=== PATIENT | female | born 1940 | race Caucasian/White ===

== ENCOUNTER 2021-08-21 01:05 | Outpatient (CLI) | payer MEDICARE, OTHER, SELFPAY ==
[2021-08-21 13:16] LABS: Source Nasal/Nares
[2021-08-21 17:39] LABS: COVID-19 PCR Negative (Negative)
== END 2021-08-21 01:06 | disposition home or self-care (01) ==
LOC: LBO 01:06
PROVIDERS: PCP Student in an Organized Health Care Education/Training Program; Visit Provider Ophthalmology
DX: Z20.822 Contact with and (suspected) exposure to COVID-19 (principal)
CPT/HCPCS: 87635; U0005

== ENCOUNTER 2021-08-24 09:36 | Day surgery (SDC) | payer MEDICARE, OTHER, SELFPAY ==
--- NOTE | 2021-08-24 10:21 | W.ANESPRE ---
General Info Date of Service Date Performed: 08/24/21 Height: 5 ft 1 in Weight: 58.06 kg Body Mass Index (BMI): 24.1 Surgical Procedure: Operation Date: 08/24/21 12:40 Proposed Procedure Side Surgeon p Cataract Extraction with IOL Implant Left Sky Guillen MD Meds Allergies and Home Medications Allergies Allergy/AdvReac Type Severity Reaction Status Date / Time shellfish derived Allergy Unknown Verified 08/24/21 10:20 cats Allergy Other (See Uncoded 08/24/21 10:20 Comment) Home Medication Medication Instructions Recorded cholecalciferol (vitamin D3) 25 1,000 unit PO DAILY 06/01/17 mcg (1,000 unit) capsule (Vitamin D3) albuterol sulfate 90 mcg/actuation 1 - 2 puff INHALATION Q6H PRN #4 01/30/21 aerosol inhaler (ProAir HFA) inhaler salmeterol 50 mcg/dose blister 1 inh INHALATION Q12H PRN #3 unit 01/30/21 powder for inhalation (Serevent Diskus) ascorbic acid (vitamin C) 500 mg 1,000 mg PO .QD cap 08/13/21 capsule ipratropium 0.5 mg-albuterol 3 mg 3 ml INHALATION DAILY PRN #90 vial 08/13/21 (2.5 mg base)/3 mL nebulization soln Current Visit Medications: Current Medications Generic Name Dose Route Start Last Admin Trade Name Freq PRN Reason Stop Dose Admin Acetaminophen 1,000 mg 08/24/21 06:00 Acetaminophen 500 Mg Tab PO Q4H PRN PRN Miscellaneous Medication 0 ml 08/24/21 06:00 Prednisolone 1%, Moxifloxacin 0.5%, Nepafenac 0.1% 5ml Btl OS DIRECTED [facility] Miscellaneous Medication 0 ml 08/24/21 06:00 Tropicam./Phenyleph. (1/2.5%) 5 Ml Btl OS DIRECTED ROMÁN Tetracaine HCl 0 ml 08/24/21 06:00 Tetracaine 0.5% 4 Ml Btl OS DIRECTED ROM[facility]N PFSH Active Problems Active Problems: Problem Status Onset Code Cataracts, bilateral H26.9 Asthma J45.909 Chronic obstructive lung disease 06/16/12 J44.9 Hearing deficit 01/21/14 H91.90 Intrinsic asthma, unspecified 10/13/11 J45.909 Surgical History Surgical History Abdominal hysterectomy Appendectomy Biopsy of breast Right Breast Cholecystectomy Fracture, Open Treatment Left ankle pin after fx Tonsillectomy and adenoidectomy Tobacco Smoking/Tobacco Use Status: Never Alcohol Alcohol Intake: never Substance Use Substance use: Never Substance use type: does not use Vital Signs and Lab Results Lab Results Blood Type / Crossmatch: No Data to Display Complete Blood Count: No Data to Display Complete Metabolic Panel: No Data to Display Liver Function Panel: No Data to Display Coagulation Panel: No Data to Display Cardiac Panel: No Data to Display Arterial Blood Gas: No Data to Display Venous Blood Gas: No Data to Display Pancreas Panel: No Data to Display Thyroid Panel: No Data to Display Infectious Disease: Coronavirus (COVID-19)(PCR) Negative (Negative) 08/21/21 08:37 08/21/21 Coronavirus 2019 Source Nasal/Nares 08/21/21 08:37 08/21/21 Blood Cultures: No Data to Display Toxicology Panel: No Data to Display Anesthesia Assessment and Plan Anesthesia History Personal History: No History of Anesthesia Complications Family History: No Family History of Anesthesia Complications Exercise Tolerance Exercise Tolerance: Metabolic Equivalents>4 Pertinent Negatives Pertinent Negatives: No Symptoms of GERD Cardiac & Pulmonary Exam Cardiac Exam: Normal S1/S2 Heart Sounds Pulmonary Exam: Clear Bilateral Breath Sounds Implantable Cardiac Device Does patient have a Pacemaker or an ICD?: No Airway Exam Known Difficult Airway: No Mallampati Class: 2 Mouth Opening: Normal (> 3cm) Thyromental Distance: Greater than 3 cm Neck Range of Motion: Full ROM Neck Circumference: Normal Teeth Condition: Removable Dentures/Plates Upper ASA Classification ASA Score: ASA 2 Emergency Case?: No NPO Status NPO Status: NPO Clears >2 hours, Solids >8 hours Anesthesia Plan Resuscitation Status: Full Code Anesthesia Technique: MAC Anesthesia Airway Planned: Natural Airway Monitors Used: Standard Monitors
[2021-08-24 10:22] VITALS: BP 148/76; PULSE 79; RESP 16; TEMP 36.7; O2SAT 99
[2021-08-24] MEDS: Tropicam./Phenyleph. (1/2.5%) 5 ML BTL OS ×3 (10:32→10:43)
[2021-08-24 11:00] VITALS: BMI 24.1
[2021-08-24] MEDS: Tetracaine 0.5% 4 ML BTL OS (11:15)
[2021-08-24] MEDS: Povidone-Iodine Ophth 30 ML BTL (11:16)
[2021-08-24] MEDS: Lidocaine 2% Jelly 6 ML SYR (11:18)
[2021-08-24] MEDS: Balanced Salt Soln.-PLUS 500 ML BAG (11:22)
[2021-08-24] MEDS: Duovisc Viscoelastic System EACH 1 EACH (11:22)
[2021-08-24 11:43] VITALS: BP 145/66; PULSE 77; RESP 16; TEMP 36.8; O2SAT 99
--- NOTE | 2021-08-24 11:43 | W.PM.DSUDISC ---
Discharge Plan Disposition Patient Disposition: HOME Condition: Good Discharge Details Attending Provider: Sky Guillen Primary Care Provider: Charity Castillo Home Meds and New Rx's Prescriptions: No Action ipratropium-albuterol 0.5 mg-3 mg(2.5 mg base)/3 mL solution for nebulization 3 ml Inhalation DAILY PRN (Reason: shortness of breath or wheezing) Qty: 90 3RF Rx Instructions: for wheezing/SOB: Dispense 3 boxes of 30 unit dose vials please ascorbic acid (vitamin C) 500 mg capsule 1,000 mg PO .QD 0RF cholecalciferol (vitamin D3) [Vitamin D3] 1,000 UNIT capsule 1,000 unit PO DAILY 0RF albuterol sulfate [ProAir HFA] 90 mcg/actuation HFA aerosol inhaler 1 - 2 puff Inhalation Q6H PRN Qty: 4 3RF Serevent Diskus 50 mcg/dose blister with device 1 inh Inhalation Q12H PRN Qty: 3 3RF Rx Instructions: for COPD Discharge Instructions Stand Alone Forms: Post-op Topical Cataract, No Rodriguez (DSU) Discharge Orders Discharge Orders: Discharge Order (Routine); Ordered 08/24/21 Ordered By: Sky Guillen DS: Diagnosis Discharge Diagnosis (1) Nuclear sclerotic cataract of left eye: Status: Resolved
--- NOTE | 2021-08-24 11:44 | ROE_ITS ---
Date of service: 08/24/21 Time of Service: 11:44 Operative Note Operative Note DATE OF PROCEDURE: 08/24/21 PRE-OP DIAGNOSIS: Nuclear cataract, left eye POST-OP DIAGNOSIS: same PROCEDURE: Cataract extraction using phacoemulsification with intraocular lens implant, left eye SURGEON: Sky Guillen ANESTHESIA TYPE: Local By Surgeon and MAC Refer to Anesthesia Record PATHOLOGY: none sent COMPLICATIONS: None Patient was transported to: same day Patient's condition: stable Implants: Bill Clareon [id number] Indications: Progressive decreased vision due to cataract, left eye Procedure Description: CATARACT SURGERY OPERATIVE REPORT PREOPERATIVE DIAGNOSIS: Nuclear cataract, left eye POSTOPERATIVE DIAGNOSIS: Same OPERATION: Cataract extraction using phacoemulsification with posterior chamber intraocular lens implant, left eye. IOL: IOL Podiatric Medicine Professor/Model: Bill Clareon [id number] IOL Power: + 21.0 diopters IOL Serial Number: [id number] Optic Diameter: 6.0mm Haptic/Overall Diameter: 13.0mm PHACO INFO: Bill Interface21urion Vision System with OZil and Active Fluidics Cumulative Dispersed Energy (CDE): 11.71 seconds SURGEON: Sky Guillen MD, DRU ANESTHESIA: Monitored Anesthesia Care (MAC), with local sub-tenon's anesthetic infiltration COMPLICATIONS: None SPECIMENS: None INDICATIONS FOR PROCEDURE: The patient is an 81-year-old lady with history of diminished visual acuity in her left eye secondary to the development of dense nuclear cataract. The option of cataract surgery was offered to the patient and she felt she was symptomatic enough that she wished to proceed. PROCEDURE: The correct surgical eye was identified and marked as the left eye and the pupil was dilated in the preoperative area using mydriatics and cycloplegics. The dilated pupil size was 7.0 mm. She should proceed without or al sedation. The patient was brought to the operating room where cardiopulmonary monitoring was instituted and surgical time-out was performed, confirming the correct operative eye and IOL power. Topical anesthesia was administered and ophthalmic povidone-iodine 5% was instilled into the conjunctival fornices. Lidocaine gel was applied to the cornea and the oseas-ocular area was prepped with Betadine 10% solution and draped in the usual sterile fashion for intraocular surgery, including an aperture drape. A Tegaderm transparent film dressing was cut in half and used to cover the lashes and lid margins. Care was taken to sequester the lashes and lid margins under the Tegaderm dressing. A lid speculum was placed between the lids of the operative eye and the Fior-Mary operating microscope was maneuvered into position. Jono scissors were then used to make a conjunctival buttonhole approximately 6mm posterior to the limbus in the inferonasal quadrant. Blunt dissection was carried out to expose bare sclera, and a blunt-tipped sub-tenon?s anesthesia cannula was introduced and passed posteriorly along the globe where non- preserved plain lidocaine was injected into posterior sub-Tenon?s space. A sideport knife was used to make a paracentesis port superior/superiortemporally. Intraocular phenylephrine/lidocaine was injected into the anterior chamber. The anterior chamber was then filled with viscoelastic. A 2.4mm keratome knife was used to create a half-thickness groove at the limbus and then to construct a three-plane near-clear corneal tunnel extending 2.0mm into clear cornea in the temporal position. . A flap was raised on the anterior capsule and capsulorhexis forceps were used to complete a continuous curvilinear capsulorhexis of 5.0 mm. Balanced salt solution was then used to perform cortical cleaving hydrodissection and nuclear hydrodelineation until the lens could be freely rotated within the capsular bag. The lens nucleus was then disassembled and r emoved within the capsular bag and iris plane using phacoemulsification. Residual cortical material was removed using the 45-degree angled silicone I/A tip with 0.3mm port. The posterior capsule was carefully polished to remove as much residual lens epithelial cells as safely possible. The capsular bag was then inflated and the anterior chamber deepened with viscoelastic. The lens implant described above was inserted into the capsular bag using the Bill [employer] Injector. A Kuglen hook was used to dial the IOL into position. Residual viscoelastic was then removed first from posterior to the IOL, then from the anterior chamber using the I/A handpiece. The lens implant was noted to center nicely within the capsular bag. The incisions were stromally hydrated, and the anterior chamber was reformed using BSS. Then 0.5cc of moxifloxacin 1.0mg/ml were injected into the capsular bag and anterior chamber. The incisions were checked with a Weck spear and found to be secure. Several drops of ophthalmic povidone-iodine 5% were then applied to the eye followed by two drops of Imprimis combination prednisolone/moxifloxacin/nepafenac solution. The drapes were removed and a clear plastic protective eye shield was placed over the eye. The patient was then returned to Same Day Surgery in stable condition.
--- NOTE | 2021-08-24 11:53 | W.ANESPOSTOP ---
Postoperative Evaluation Date, Time and Location Date Performed: 08/24/21 Time Performed: 11:53 Patient Location: Day Surgery Unit Vital Signs Most Recent Imported Vital Signs: Most Recent Vital Signs Temp Pulse Resp BP Pulse Ox 36.8 C 77 16 145/66 H 99 08/24/21 11:43 08/24/21 11:43 08/24/21 11:43 08/24/21 11:43 08/24/21 11:43 Pain Score Most Recent Pain Score: Most Recent Pain Score Pain Level 0 08/24/21 11:43 Assessment Mental Status: Awake (Alert & Oriented to Patient Baseline) Airway and Respiratory Function: Patent airway with normal (patient baseline) respiratory exam Cardiovascular Function: Hemodynamically Stable Hydration Status: Adequately Hydrated Nausea & Vomiting: No Nausea or Vomiting Pain: Pt. Denies Any Pain Peripheral Nerve Block: Patient did not receive a nerve block
== END 2021-08-24 12:04 | disposition home or self-care (01) ==
PROVIDERS: PCP Student in an Organized Health Care Education/Training Program; Visit Provider Ophthalmology
PROC: (CPT 66984; principal; 2021-08-24 12:30)
DX: H25.12 Age-related nuclear cataract, left eye (principal); J44.9 Chronic obstructive pulmonary disease, unspecified
CPT/HCPCS: 66984; V2632

== ENCOUNTER 2021-09-04 01:48 | Outpatient (CLI) | payer MEDICARE, OTHER, SELFPAY ==
[2021-09-04 12:07] LABS: Source Nasal/Nares
[2021-09-04 14:55] LABS: COVID-19 PCR Negative (Negative)
== END 2021-09-04 01:49 | disposition home or self-care (01) ==
LOC: LBO 01:49
PROVIDERS: PCP Student in an Organized Health Care Education/Training Program; Visit Provider Ophthalmology
DX: Z20.822 Contact with and (suspected) exposure to COVID-19 (principal)
CPT/HCPCS: 87635; U0005

== ENCOUNTER 2021-09-07 09:41 | Day surgery (SDC) | payer MEDICARE, OTHER, SELFPAY ==
[2021-09-07 10:00] VITALS: BP 128/67; PULSE 74; RESP 16; TEMP 36.8; O2SAT 98
[2021-09-07] MEDS: Tropicam./Phenyleph. (1/2.5%) 5 ML BTL OD ×3 (10:09→10:18)
[2021-09-07 10:49] VITALS: BMI 23.3
--- NOTE | 2021-09-07 10:49 | ANES.PREOP_ITS ---
General Info Date of Service Date Performed: 09/07/21 Height: 5 ft 1 in Weight: 56.2 kg Body Mass Index (BMI): 23.3 Surgical Procedure: Operation Date: 09/07/21 12:40 Proposed Procedure Side Surgeon p Cataract Extraction with IOL Implant Right Sky Guillen MD Meds Allergies and Home Medications Allergies Allergy/AdvReac Type Severity Reaction Status Date / Time shellfish derived Allergy Unknown Verified 09/07/21 09:58 cats Allergy Other (See Uncoded 09/07/21 09:58 Comment) Home Medication Medication Instructions Recorded cholecalciferol (vitamin D3) 25 1,000 unit PO DAILY 06/01/17 mcg (1,000 unit) capsule (Vitamin D3) albuterol sulfate 90 mcg/actuation 1 - 2 puff INHALATION Q6H PRN #4 01/30/21 aerosol inhaler (ProAir HFA) inhaler salmeterol 50 mcg/dose blister 1 inh INHALATION Q12H PRN #3 unit 01/30/21 powder for inhalation (Serevent Diskus) ascorbic acid (vitamin C) 500 mg 1,000 mg PO .QD cap 08/13/21 capsule ipratropium 0.5 mg-albuterol 3 mg 3 ml INHALATION DAILY PRN #90 vial 08/13/21 (2.5 mg base)/3 mL nebulization soln Current Visit Medications: Current Medications Generic Name Dose Route Start Last Admin Trade Name Freq PRN Reason Stop Dose Admin Acetaminophen 1,000 mg 09/07/21 06:00 Acetaminophen 500 Mg Tab PO Q4H PRN PRN Miscellaneous Medication 0 ml 09/07/21 06:00 Prednisolone 1%, Moxifloxacin 0.5%, Nepafenac 0.1% 5ml Btl OD DIRECTED [facility] Miscellaneous Medication 0 ml 09/07/21 06:00 09/07/21 10:18 Tropicam./Phenyleph. (1/2.5%) 5 Ml Btl OD 1 drp DIRECTED ROMÁN Administration Tetracaine HCl 0 ml 09/07/21 06:00 Tetracaine 0.5% 4 Ml Btl OD DIRECTED ROM[facility]N PFSH Active Problems Active Problems: Problem Status Onset Code Nuclear sclerosis of right eye H25.11 Nuclear sclerotic cataract of left eye H25.12 Cataracts, bilateral H26.9 Asthma J45.909 Chronic obstructive lung disease 12/14/12 J44.9 Hearing deficit 01/21/14 H91.90 Intrinsic asthma, unspecified 10/13/11 J45.909 Surgical History Surgical History Abdominal hysterectomy Appendectomy Biopsy of breast Right Breast Cholecystectomy Fracture, Open Treatment Left ankle pin after fx H/O cataract extraction (~08/24/21) Left eye Tonsillectomy and adenoidectomy Tobacco Smoking/Tobacco Use Status: Never Alcohol Alcohol Intake: never Substance Use Substance use: Never Substance use type: does not use Vital Signs and Lab Results Vital Signs Most Recent Vital Signs in EMR: Most Recent Vital Signs Temp Pulse Resp BP Pulse Ox 36.8 C 74 16 128/67 98 09/07/21 10:00 09/07/21 10:00 09/07/21 10:00 09/07/21 10:00 09/07/21 10:00 Lab Results Blood Type / Crossmatch: No Data to Display Complete Blood Count: No Data to Display Complete Metabolic Panel: No Data to Display Liver Function Panel: No Data to Display Coagulation Panel: No Data to Display Cardiac Panel: No Data to Display Arterial Blood Gas: No Data to Display Venous Blood Gas: No Data to Display Pancreas Panel: No Data to Display Thyroid Panel: No Data to Display Infectious Disease: Coronavirus (COVID-19)(PCR) Negative (Negative) 09/04/21 10:32 09/04/21 Coronavirus 2019 Source Nasal/Nares 09/04/21 10:32 09/04/21 Blood Cultures: No Data to Display Toxicology Panel: No Data to Display Anesthesia Assessment and Plan Anesthesia History Personal History: No History of Anesthesia Complications Family History: No Family History of Anesthesia Complications Exercise Tolerance Exercise Tolerance: Metabolic Equivalents>4 Pertinent Negatives Pertinent Negatives: No Symptoms of GERD, No Major Cardiovascular Symptoms or Complaints, No Major Pulmonary Symptoms or Complaints and No History of CVA/TIA Cardiac & Pulmonary Exam Cardiac Exam: Normal S1/S2 Heart Sounds Pulmonary Exam: Clear Bilateral Breath Sounds Implantable Cardiac Device Does patient have a Pacemaker or an ICD?: No Airway Exam Known Difficult Airway: No Mallampati Class: 2 Mouth Opening: Normal (> 3cm) Thyromental Distance: Greater than 3 cm Neck Range of Motion: Full ROM Neck Circumference: Normal Teeth Condition: Removable Dentures/Plates Upper ASA Classification ASA Score: ASA 2 Emergency Case?: No NPO Status NPO Status: NPO Clears >2 hours, Solids >8 hours Anesthesia Plan Resuscitation Status: Full Code Anesthesia Technique: MAC Anesthesia Airway Planned: Natural Airway Monitors Used: Standard Monitors
[2021-09-07] MEDS: Povidone-Iodine Ophth 30 ML BTL (11:04)
[2021-09-07] MEDS: Lidocaine 2% Jelly 6 ML SYR (11:05)
[2021-09-07] MEDS: Tetracaine 0.5% 4 ML BTL OD (11:05)
[2021-09-07] MEDS: Duovisc Viscoelastic System EACH 1 EACH (11:14)
[2021-09-07] MEDS: Balanced Salt Soln.-PLUS 500 ML BAG (11:14)
[2021-09-07 11:37] VITALS: PULSE 70; RESP 16; TEMP 36.6; O2SAT 99
--- NOTE | 2021-09-07 11:39 | W.PM.DSUDISC ---
Discharge Plan Disposition Patient Disposition: HOME Condition: Good Discharge Details Attending Provider: Sky Guillen Primary Care Provider: Charity Castillo Home Meds and New Rx's Prescriptions: No Action ipratropium-albuterol 0.5 mg-3 mg(2.5 mg base)/3 mL solution for nebulization 3 ml Inhalation DAILY PRN (Reason: shortness of breath or wheezing) Qty: 90 3RF Rx Instructions: for wheezing/SOB: Dispense 3 boxes of 30 unit dose vials please ascorbic acid (vitamin C) 500 mg capsule 1,000 mg PO .QD 0RF cholecalciferol (vitamin D3) [Vitamin D3] 1,000 UNIT capsule 1,000 unit PO DAILY 0RF albuterol sulfate [ProAir HFA] 90 mcg/actuation HFA aerosol inhaler 1 - 2 puff Inhalation Q6H PRN Qty: 4 3RF Serevent Diskus 50 mcg/dose blister with device 1 inh Inhalation Q12H PRN Qty: 3 3RF Rx Instructions: for COPD Discharge Instructions Stand Alone Forms: Post-op Topical Cataract, No Ganey (DSU) Discharge Orders Discharge Orders: Discharge Order (Routine); Ordered 09/07/21 Ordered By: Sky Guillen DS: Diagnosis Discharge Diagnosis (1) Nuclear sclerosis of right eye: Status: Resolved
--- NOTE | 2021-09-07 11:42 | W.PM.OP ---
Date of service: 09/07/21 Time of Service: 11:42 Operative Note Operative Note DATE OF PROCEDURE: 01/19/21 PRE-OP DIAGNOSIS: Nuclear cataract, right eye POST-OP DIAGNOSIS: same PROCEDURE: Cataract extraction using phacoemulsification with intraocular lens implant, left eye SURGEON: Sky Guillen ANESTHESIA TYPE: Local By Surgeon and MAC Refer to Anesthesia Record ESTIMATED BLOOD LOSS: 0 PATHOLOGY: none sent COMPLICATIONS: None Patient was transported to: same day Patient's condition: stable Implants: Sid and Sid / [employer] Tecnis [id number] Indications: Progressive decreased vision due to cataract, left eye Procedure Description: CATARACT SURGERY OPERATIVE REPORT PREOPERATIVE DIAGNOSIS: 1. Nuclear cataract, right eye POSTOPERATIVE DIAGNOSIS: Same OPERATION: 1. Cataract extraction using phacoemulsification with posterior chamber intraocular lens implant, left eye. IOL: IOL Tool Inspector/Model: Sid & Sid / RAJENDRA Tecnis [id number] IOL Power: + 22.5 diopters IOL Serial Number: [id number] Optic Diameter: 6.0 mm Haptic/Overall Diameter: 13.0 mm PHACO INFO: Bill Yasuuurion Vision System with OZil and Active Fluidics Cumulative Dispersed Energy (CDE): 16.6 seconds SURGEON: Sky Guillen MD, DRU ANESTHESIA: Monitored A [facility] (MAC), with local sub-tenon's anesthetic infiltration COMPLICATIONS: None SPECIMENS: None INDICATIONS FOR PROCEDURE: The patient is an 81-year-old lady with history of diminished visual acuity in both eyes secondary to the development of bilateral cataract. She has already undergone cataract surgery in the left eye and is doing well postoperatively. She now presents for cataract surgery in the right eyes. PROCEDURE: The correct surgical eye was identified and marked as the left eye and the pupil was dilated in the preoperative area using mydriatics and cycloplegics. The dilated pupil size was 7.0 mm. She elected to proceed without oral sedation. The patient was brought to the operating room where cardiopulmonary monitoring was instituted and surgical time-out was performed, confirming the correct operative eye and IOL power. Topical anesthesia was administered and ophthalmic povidone-iodine 5% was instilled into the conjunctival fornices. Lidocaine gel was applied to the cornea and the oseas-ocular area was prepped with Betadine 10% solution and draped in the usual sterile fashion for intraocular surgery, including an aperture drape. A Tegaderm transparent film dressing was cut in half and used to cover the lashes and lid margins. Care was taken to sequester the lashes and lid margins under the Tegaderm dressing. A lid speculum was placed between the lids of the operative eye and the Bill Lux[employer] operating microscope was maneuvered into position. Jono scissors were then used to make a conjunctival buttonhole approximately 6mm posterior to the limbus in the inferonasal quadrant. Blunt dissection was carried out to expose bare sclera, and a blunt-tipped sub-tenon?s anesthesia cannula was introduced and passed posteriorly along the globe where non-preserved plain lidocaine was injected into posterior sub-Tenon?s space. A sideport knife was used to make a paracentesis port superiorly/superiortemporally. Intraocular phenylephrine/lidocaine was injected int the anterior chamber.. The anterior chamber was filled with viscoelastic. A 2.4mm keratome knife was used to create a half-thickness groove at the limbus and then to construct a three-plane near-clear corneal tunnel extending 2.0mm into clear cornea at the 3:00 position. A flap was raised on the anterior capsule and capsulorhexis forceps were used to complete a continuous curvilinear capsulorhexis of 5.5 mm. Balanced salt solution was then used to perform cortical cleaving hydrodissection and nuclear hydrodelineation until the lens could be freely rotated within the capsular bag. The lens nucleus was then disassembled and removed within the capsular bag and iris plane using phacoemulsification. Residual cortical material was removed using the 45-degree angled silicone I/A tip with 0.3mm port. The posterior capsule was carefully polished to remove as much residual lens epithelial cells as safely possible. The capsular bag was then inflated and the anterior chamber deepened with viscoelastic. The lens implant described above was inserted into the capsular bag using the RAJENDRA [employer] [employer] Injector. A Kuglen hook was used to dial the IOL into position. Residual viscoelastic was then removed first from posterior to the IOL, then from the anterior chamber using the I/A handpiece. The lens implant was noted to center nicely within the capsular bag. The incisions were stromally hydrated, and the anterior chamber was reformed using BSS. Then 0.5cc of moxifloxacin 1.0mg/ml were injected into the capsular bag and anterior chamber. The incisions were checked with a Weck spear and found to be secure. Several drops of ophthalmic povidone-iodine 5% were then applied to the eye followed by two drops of Imprimis combination prednisolone/moxifloxacin/nepafenac solution. The drapes were removed and a clear plastic protective eye shield was placed over the eye. The patient was then returned to Same Day Surgery in stable condition.
--- NOTE | 2021-09-07 11:48 | W.ANESPOSTOP ---
Postoperative Evaluation Date, Time and Location Date Performed: 09/07/21 Time Performed: 11:49 Patient Location: Day Surgery Unit Vital Signs Most Recent Imported Vital Signs: Most Recent Vital Signs Temp Pulse Resp BP Pulse Ox 36.6 C 70 16 128/67 99 09/07/21 11:37 09/07/21 11:37 09/07/21 11:37 09/07/21 10:00 09/07/21 11:37 Pain Score Most Recent Pain Score: Most Recent Pain Score Pain Level 0 09/07/21 11:37 Assessment Mental Status: Awake (Alert & Oriented to Patient Baseline) Airway and Respiratory Function: Patent airway with normal (patient baseline) respiratory exam Cardiovascular Function: Hemodynamically Stable Hydration Status: Adequately Hydrated Nausea & Vomiting: No Nausea or Vomiting Pain: Pt. Denies Any Pain Peripheral Nerve Block: Patient did not receive a nerve block
== END 2021-09-07 11:56 | disposition home or self-care (01) ==
PROVIDERS: PCP Student in an Organized Health Care Education/Training Program; Visit Provider Ophthalmology
PROC: (CPT 66984; principal; 2021-09-07 12:30)
DX: H25.11 Age-related nuclear cataract, right eye (principal)
CPT/HCPCS: 66984; V2632

== ENCOUNTER 2022-02-03 03:00 | Outpatient (CLI) | payer MEDICARE, OTHER, SELFPAY ==
[2022-02-03 09:30] LABS: HGB 12.7 g/dL (11.2-15.7); MCHC 32.6 % (32.0-36.0); MCV 92 fL (80-95); MPV 9.5 fL (8.0-11.0); Platelet Count 267 10^3/uL (130-400); RBC 4.24 10^6/uL (3.93-5.22); RDW 13.2 % (11.7-14.6); RDW-SD 44.3 fL; WBC 8.42 10^3/uL (4.4-10.8)
[2022-02-03 10:19] LABS: Anion Gap 9.9 mmol/L (3-11); BUN 19 mg/dL (7-18); CO2 27.1 mmol/L (21.0-32.0); CREATININE 0.8 mg/dL (0.55-1.02); Calcium 9.3 mg/dL (8.5-10.1); Chloride 103 mmol/L (98-107); Glucose 102 mg/dL (74-106); Potassium 4.1 mmol/L (3.5-5.1); Sodium 140 mmol/L (136-145)
== END 2022-02-03 03:01 | disposition home or self-care (01) ==
LOC: LBO 03:01
PROVIDERS: PCP Student in an Organized Health Care Education/Training Program; Visit Provider Student in an Organized Health Care Education/Training Program
DX: N28.9 Disorder of kidney and ureter, unspecified (principal); J45.909 Unspecified asthma, uncomplicated; J44.9 Chronic obstructive pulmonary disease, unspecified
CPT/HCPCS: 36415; 80048; 85027

== ENCOUNTER 2024-12-03 15:52 | Emergency (ER) | payer MEDICARE, OTHER, SELFPAY ==
[2024-12-03 15:57] VITALS: BP 173/83; PULSE 90; RESP 16; TEMP 36.8; O2SAT 95
--- NOTE | 2024-12-03 16:05 | ED.GENADUL_ITS ---
Discharge Plan Disposition Patient Disposition: Home Discharge Details Clinical Impression: Distal radius fracture Primary Care Provider: Jose Monsalve ED Provider: Rama King Home Meds and New Rx's Prescriptions: No Action ascorbic acid (vitamin C) 500 mg capsule 1,000 mg PO .QD famotidine 40 mg tablet 40 mg PO DAILY Qty: 10 0RF loratadine [Claritin] 10 mg tablet 10 mg PO DAILY Qty: 10 0RF Rx Instructions: Trial for pruritic rash cholecalciferol (vitamin D3) [Vitamin D3] 1,000 UNIT capsule 1,000 unit PO DAILY (DME) Nebulizer supplies See Rx Instructions .Route .MEDSUPPLY Qty: 1 12RF Rx Instructions: As directed Serevent Diskus 50 mcg/dose blister with device 1 inh Inhalation Q12H PRN Qty: 3 3RF Rx Instructions: for COPD albuterol sulfate 90 mcg/actuation HFA aerosol inhaler 1 - 2 puff Inhalation Q6H PRN Qty: 4 3RF ipratropium-albuterol 0.5 mg-3 mg(2.5 mg base)/3 mL solution for nebulization 3 ml Inhalation DAILY PRN (Reason: shortness of breath or wheezing) Qty: 90 3RF Rx Instructions: for wheezing/SOB: Dispense 3 boxes of 30 unit dose vials please Discharge Instructions Instructions: Radius Fracture (DC) Additional Instructions: Please call [facility] orthopedics first thing in the morning to schedule follow-up appointment for management of your wrist fracture. Keep your splint clean and dry, treating as you with a cast. Do not get it wet in the shower, you may use a cast bag to help prevent it from getting wet. Keep your hand above heart level to help with swelling. Apply ice for 15-20 minutes at a time. You may use Tylenol as needed for discomfort. Return to emergency care if develop any signs of neurovascular compromise such as blueness/color change to your fingers, numbness to your fingers, severe pain, or if you are very worried and need to be rechecked again immediately Referrals: [facility] [Provider Group] Discharge Data Discharge Date/Time-TO BE ENTERED AT DEPARTURE: 12/03/24 17:30 HPI General Date/Time Provider Initiated Documentation: 12/03/24 16:05 . 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 Pain radiates to fingers when lifting objects and mild pain in fingers upon movement. Denies distal numbness/tingling. Denies other injuries. No pain in elbow, left arm, head, neck, legs, or back. No history of osteoporosis or fractures. Current medications include asthma treatment, denies other significant past medical history. She is right-hand dominant. Related Data Home Medications ?Medication ?Instructions ?Recorded ?Confirmed cholecalciferol (vitamin D3) 25 1,000 unit PO DAILY 06/01/17 12/03/24 mcg (1,000 unit) capsule (Vitamin D3) ascorbic acid (vitamin C) 500 mg 1,000 mg PO .QD 08/13/21 12/03/24 capsule Nebulizer supplies #1 ea 05/04/22 02/03/24 salmeterol 50 mcg/dose blister 1 inh inhalation Q12H PRN #3 units 01/20/24 12/03/24 powder for inhalation (Serevent Diskus) albuterol sulfate 90 mcg/actuation 1 - 2 puff inhalation Q6H PRN ##4 01/30/24 aerosol inhaler famotidine 40 mg tablet 40 mg PO DAILY #10 tabs 02/03/24 12/03/24 loratadine 10 mg tablet (Claritin) 10 mg PO DAILY #10 tabs 02/03/24 12/03/24 ipratropium 0.5 mg-albuterol 3 mg 3 ml inhalation DAILY PRN 06/21/24 12/03/24 (2.5 mg base)/3 mL nebulization shortness of breath or wheezing soln #90 vials Previous Rx's ?Medication ?Instructions ?Recorded Nebulizer supplies #1 ea 05/04/22 salmeterol 50 mcg/dose blister 1 inh inhalation Q12H PRN #3 units 01/20/24 powder for inhalation (Serevent Diskus) albuterol sulfate 90 mcg/actuation 1 - 2 puff inhalation Q6H PRN ##4 01/30/24 aerosol inhaler famotidine 40 mg tablet 40 mg PO DAILY #10 tabs 02/03/24 loratadine 10 mg tablet (Claritin) 10 mg PO DAILY #10 tabs 02/03/24 ipratropium 0.5 mg-albuterol 3 mg 3 ml inhalation DAILY PRN 06/21/24 (2.5 mg base)/3 mL nebulization shortness of breath or wheezing soln #90 vials Allergies Allergy/AdvReac Type Severity Reaction Status Date / Time shellfish derived Allergy Unknown rash Verified 12/03/24 15:59 cats Allergy Other (See Uncoded 12/03/24 15:59 Comment) General Stated Complaint: Orthopedic SRAVAN: 4 Exam Narrative Exam Narrative: General Appearance: Normal. Patient alert and oriented, no acute distress Vital signs: Within normal limits. Extremities: Swelling noted over distal radius. No point tenderness to palpation. Decreased range of motion to wrist due to discomfort. No overlying ecchymosis/abrasion/skin tears. Full painless range of motion to elbow and fingers, full extension and flexion. Brisk cap refill to fingers. Skin: Warm and dry, no rash. Psychiatric: Normal. Course Vital Signs Vital signs: Vital Signs Temperature 36.8 C 12/03/24 15:57 Pulse 90 12/03/24 15:57 Respiratory Rate 16 12/03/24 15:57 Blood Pressure 173/83 H 12/03/24 15:57 Pulse Oximetry 95 12/03/24 15:57 Temperature 36.8 C 12/03/24 15:57 Temperature Source Tympanic 12/03/24 15:57 Pulse 90 12/03/24 15:57 Respiratory Rate 16 12/03/24 15:57 Blood Pressure 173/83 H 12/03/24 15:57 Pulse Oximetry 95 12/03/24 15:57 Oxygen Delivery Method Room Air 12/03/24 15:57 Oxygen Flow Rate 0 12/03/24 15:57 Medical Decision Making Initial Assessment: 84-year-old female with right wrist pain following a fall. Pain with lifting and finger movement. No pain on palpation. No history of fractures or bone issues. ED Course: - Ordered x-ray of right wrist. - Advised ice application. - Offered Tylenol for pain management, but patient declined. Final Assessment: Wrist pain due to fall, with pain on lifting and finger movement but no pain on palpation. No red flags for neurovascular compromise. I independently interpreted the following test: Right wrist x-ray, distal radius fracture noted. Was confirmed by radiology Discussed case with Dr. Boss, orthopedist. Reviewed patient presentation, x-rays, and plan of care. He advises volar short arm splint and close follow-up with orthopedics. I did place a volar short arm splint on patient, she tolerated procedure well. Neurovascular intact after splint application. Clinical Impression: - Nondisplaced distal radius fracture Disposition: - Discharge. Reviewed discharge instructions with patient, including splint care, importance of follow-up with orthopedics, and red flags indicating need for return to emergency care. She voices agreement with plan of care MDM Components Evaluation: - Number of Differential Diagnoses or Management Options: Right wrist pain due to fall - Amount and Complexity of Data Reviewed: X-ray ordered - Risk of Complication and Morbidity or Mortality: Low risk due to no history of fractures or bone issues Patient consented to the use of DAMASO Imaging Data Radiologic Study: Radiologist's impression: Exam(s) XR WRIST RT COMPLETE EXAM: XR WRIST RT COMPLETE CLINICAL HISTORY: wrist pain and swelling after fall. TECHNIQUE: 2D digital imaging was performed. COMPARISON: No exams were available for comparison FINDINGS: 3 views There is a nondisplaced non angulated transverse fracture of the distal radius with the fracture line approximately 1 cm proximal to the radiocarpal joint surface. The distal ulna appears intact. Obvious scaphoid fracture. Scapholunate distance is normal. There is some degenerative changes in the triscaphe for aid joint and 1st carpometacarpal joint. IMPRESSION: Nondisplaced transverse fracture of the distal radius. Quality:SDOH Health Related Social Needs: No Data to Display PFSH All Active Problems (Updated 12/03/24 @ 17:21 by Rama Gilman) Distal radius fracture (Acute) Rash (Acute) Elevated blood pressure reading in office with white coat syndrome, without diagnosis of hypertension (Acute) Hx elevated SBP, with elevated BP today presumably affected by grief/shock. Home BPs x 1 month. Grief at loss of child (Acute) Lost her son recently, [place] @ [place] Asthma (Acute) Chronic obstructive lung disease (Acute 06/16/12) GOLD 2: MOD: FEV1 1.35 (2008) 60%PRED;50% FVC, SIGNIFICANT IMPROVEMENT WITH BRONCHODILATOR Stable: uses disk inhaler daily, with proair and nebulizer PRN. Good breath sounds, active lifestyle. 05/2017 Hearing deficit (Acute 01/21/14) has hearing aids, rarely worn! 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 Diabetes due to Pancreatic Ca Father , pneumonia at age 62. Asthma Sister Asthma Sister Asthma Sister No problems noted. Brother No problems noted. Brother No problems noted. Son No problems noted. Daughter Personal history of malignant neoplasm Breast Daughter No problems noted. Social History (Updated 01/30/21 @ 09:47 by Tess Schroeder RN) Smoking/Tobacco Use Status: Never Smoking risk assessment performed?: Yes Alcohol Intake: never Drug use: Never Substance use type: does not use Household members: none Housing: house Number of Children: 3 current occupation: Retired from [employer] ([employer]) Do you think of yourself as: straight/heterosexual Current gender identity: female What is your relationship status?: How often do you get together with friends or relatives?: three or more times per week Panel score (0-1 are the most socially isolated patients): 1 What type of physical activity do you participate in: walking Duration: 15-30 minutes/day Frequency: daily Seatbelt use: always Helmet use: Yes Helmet use: other Details: N/S Working smoke detector in home: Yes Fire extinguisher in home: Yes Carbon monox detector in home: Yes Do you feel safe at home: Yes Do you feel safe in your relationship?: Yes Additional Social history: lives alone
--- NOTE | 2024-12-03 16:25 | DI.RAD_ITS ---
Exam(s) XR WRIST RT COMPLETE EXAM: XR WRIST RT COMPLETE CLINICAL HISTORY: wrist pain and swelling after fall. TECHNIQUE: 2D digital imaging was performed. COMPARISON: No exams were available for comparison FINDINGS: 3 views There is a nondisplaced non angulated transverse fracture of the distal radius with the fracture line approximately 1 cm proximal to the radiocarpal joint surface. The distal ulna appears intact. Obvi ous scaphoid fracture. Scapholunate distance is normal. There is some degenerative changes in the t riscaphe for aid joint and 1st carpometacarpal joint. IMPRESSION: Nondisplaced transverse fracture of the distal radius. DATA REPOSITORY: RADIATION DOSE DELIVERED:
== END 2024-12-03 17:30 | disposition home or self-care (01) ==
PROVIDERS: Emergency Provider Nurse Practitioner Family; PCP Family Medicine
DX: S52.591A Other fractures of lower end of right radius, initial encounter for closed fracture (principal); S62.001A Unspecified fracture of navicular [scaphoid] bone of right wrist, initial encounter for closed fracture; W18.39XA Other fall on same level, initial encounter; Y93.H2 Activity, gardening and landscaping; Y92.017 Garden or yard in single-family (private) house as the place of occurrence of the external cause
CPT/HCPCS: 29125; 99283; 73110

== ENCOUNTER 2024-12-10 09:53 | Emergency (ER) | payer MEDICARE, OTHER, SELFPAY ==
[2024-12-10] VITALS (17 sets, daily range): BP systolic 151–191; BP diastolic 53–72; PULSE 55–76; RESP 10–22; TEMP 36.2; O2SAT 96–99
--- NOTE | 2024-12-10 10:00 | RT.EKG_ITS ---
APPROVED REPORT Exam: Resting ECG Reason for Exam: Stroke Patient Location: E HR:67 bpm ECG Measurements Heart Rate 67 AXIS CA 161 P 100 QRSd 75 QRS 72 QT 413 T 69 QTc 436 Conclusion Sinus rhythm, rate 67 No interval abnormalities No STEMI Q waves, V1 and V2, no priors available for comparison
--- NOTE | 2024-12-10 10:00 | DI.CT_ITS ---
Exam(s) CT BRAIN NECK CTA EXAM: CT BRAIN NECK CTA CLINICAL HISTORY: L. facial droop with forehead sparing, LWK 10pm. TECHNIQUE: Imaging Protocol: Axial CT angiography was performed with multi-slice acquisition and mu lti-planar and/or 3D reconstructions. CONTRAST MATERIAL: Intravenous: Omnipaque 350 Contrast volume:70 mL COMPARISON: No exams were available for comparison FINDINGS: CTA Neck W: Aortic arch anatomy: The aortic arch anatomy is conventional and there is no significant stenosis at the origin of the great vessels off of the aortic arch. No intimal flap evident. Anterior circulation: Both common carotid arteries ascend with normal luminal diameters. At the level the carotid bulbs and proximal internal carotid arteries there is minimal plaque without hemodynamically significant stenosis evident. No evidence of dissection. The internal carotid arteries in the upper neck are nicely patent as well as in the skull base-carotid canals. Posterior circulation: Both vertebral arteries originate in conventional fashion off of the subclavian arteries and there is no obvious stenosis at the origin of the vertebral arteries. Both vertebral arteries exhibit normal luminal diameters within the foramen transversarium. The left vertebral artery is dominant. Both vertebral arteries contribute to the formation of the basilar artery at the skull base. CTA Brain W: Anterior circulation: Both internal carotid arteries are patent in the skull base-carotid canals as well as within the cave rnous sinuses. The supraclinoid aspects of the ICAs are patent. Both A1 segments are patent as are the anterior cer ebral arteries and there is no evidence of aneurysm at the level of the anterior communicating artery . Both middle cerebral arteries are patent with no evidence of significant stenosis nor intraluminal th rombus. There also no aneurysms of these vessels. Posterior circulation: Basilar artery ascends in the midline with no significant stenosis. Distally it gives patent bilateral superior cerebellar arteries and above this level terminates as pa tent bilateral posterior cerebral arteries. There is no evidence of aneurysm at the tip of the basilar artery nor elsewhere in the [id number] is. CT BRAIN: There is no evidence of intracranial hemorrhage, mass effect, or shift of midline structures. There are no extra-axial fluid collections. Ventricles are not enlarged or shifted. There are no ring enh ancing lesions in the brain and no abnormal meningeal enhancement. Prior bilateral cataract surgery noted. IMPRESSION: 1. Patent carotid arteries in the neck. No hemodynamically significant stenosis. No dissection. 2. Patent vertebral arteries. No intraluminal thrombus. No dissection. 3. Patent intracranial arteries. No intraluminal thrombus. No stenosis. No dissection. 4. No evidence of intracranial hemorrhage. No ring enhancing lesions in the brain and no abnormal me ningeal enhancement. z Report called by myself to ER 12/10/2024 at 11:12 a.m. RADIATION DOSE DELIVERED: 2,073.54mGy.cm Total DLP DATA REPOSITORY: All CT scans at this facility are submitted to the National Radiology Data Registry (NRDR) Dose Index Registry (DIR) with the [employer] ([employer]). RADIATION OPTIMIZATION: All CT scans at this facility use at least one of these dose optimization te chniques: automated exposure control; mA and/or kV adjustment per patient size (includes targeted exa ms where dose is matched to clinical indication); or iterative reconstruction.
--- NOTE | 2024-12-10 10:08 | W.ED.GENAD ---
Discharge Plan Disposition Patient Disposition: Home Condition: Stable Discharge Details Clinical Impression: Goodman palsy Primary Care Provider: Jose Monsalve ED Provider: Flores Llamas Home Meds and New Rx's Prescriptions: New prednisone 20 mg tablet 60 mg PO DAILY 6 Days Qty: 18 0RF valacyclovir 1 gram tablet 1,000 mg PO TID 7 Days Qty: 21 0RF polyvinyl alcohol [Artificial Tears (polyvin alc)] 1.4 % drops 1 drp ophthalmic (eye) 4-6XD Qty: 15 0RF No Action ascorbic acid (vitamin C) 500 mg capsule 1,000 mg PO .QD loratadine [Claritin] 10 mg tablet 10 mg PO DAILY Qty: 10 0RF Rx Instructions: Trial for pruritic rash cholecalciferol (vitamin D3) [Vitamin D3] 1,000 UNIT capsule 1,000 unit PO DAILY (DME) Nebulizer supplies See Rx Instructions .Route .MEDSUPPLY Qty: 1 12RF Rx Instructions: As directed Serevent Diskus 50 mcg/dose blister with device 1 inh Inhalation Q12H PRN Qty: 3 3RF Rx Instructions: for COPD albuterol sulfate 90 mcg/actuation HFA aerosol inhaler 1 - 2 puff Inhalation Q6H PRN Qty: 4 3RF ipratropium-albuterol 0.5 mg-3 mg(2.5 mg base)/3 mL solution for nebulization 3 ml Inhalation DAILY PRN (Reason: shortness of breath or wheezing) Qty: 90 3RF Rx Instructions: for wheezing/SOB: Dispense 3 boxes of 30 unit dose vials please Discharge Instructions Instructions: Goodman's palsy Additional Instructions: You were seen in the emergency department today for evaluation of left-sided facial droop that was found to be due to Goodman's palsy. In our department a full stroke workup that was negative, had laboratory studies that were reassuring, and were started on 2 medications. The first is prednisone, the second is valacyclovir, you need to take both of these medications until they are gone, even if you start to feel better. Your eye is not closing completely, please use eyedrops throughout the day, and at night you need to purchase an [id number] eye lubricant such as Lacri-Lube, place inside your eye and then tape it closed for sleep. 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 It can take several weeks for her Goodman's palsy symptoms to resolve. You have a Lyme test that is pending, you will be contacted with positive results. Please follow-up with your primary care provider in the next few days to discuss this visit and any symptoms that change, worsen, or persist. Thank you for allowing us to be part of your care. HPI General Mode of arrival: ambulatory. Date/Time Provider Initiated Documentation: 12/10/24 09:58. Limitations to Documentation: no limitations. Information obtained by: patient, family and old records reviewed. HPI Narrative: This is an 84-year-old female patient with a past medical history significant for hypertension, COPD, and a recent visit for a distal radius fracture, presenting for evaluation of left-sided facial droop. The patient was in her normal state of health when she went to bed at 10 PM last night. She says she woke up around 1 AM, and felt a strange sensation behind her left ear radiating down into her left jaw. She woke up this morning and tried to take a sip of her coffee, and noted that it dribbled out of the left corner of her mouth. Her daughter is at bedside and confirms that her left-sided facial droop appears new, she feels like she cannot completely close her left eye, and has noted a change in her speech. The patient denies other numbness, weakness, or changes to her extremities or body. No reported trauma other than the fall that caused a distal radius fracture. Related Data Home Medications ?Medication ?Instructions ?Recorded ?Confirmed cholecalciferol (vitamin D3) 25 1,000 unit PO DAILY 06/01/17 12/10/24 mcg (1,000 unit) capsule (Vitamin D3) ascorbic acid (vitamin C) 500 mg 1,000 mg PO .QD 08/13/21 12/10/24 capsule Nebulizer supplies #1 ea 05/04/22 12/10/24 salmeterol 50 mcg/dose blister 1 inh inhalation Q12H PRN #3 units 01/20/24 12/10/24 powder for inhalation (Serevent Diskus) albuterol sulfate 90 mcg/actuation 1 - 2 puff inhalation Q6H PRN ##4 01/30/24 12/10/24 aerosol inhaler loratadine 10 mg tablet (Claritin) 10 mg PO DAILY #10 tabs 02/03/24 12/10/24 ipratropium 0.5 mg-albuterol 3 mg 3 ml inhalation DAILY PRN 06/21/24 12/10/24 (2.5 mg base)/3 mL nebulization shortness of breath or wheezing soln #90 vials polyvinyl alcohol 1.4 % eye drops 1 drp ophthalmic (eye) 4-6XD #15 mL 12/10/24 (Artificial Tears (polyvinyl alcohol)) prednisone 20 mg tablet 60 mg (3 x 20 mg) PO DAILY 6 days 12/10/24 #18 tabs valacyclovir 1 gram tablet 1,000 mg PO TID 7 days #21 tabs 12/10/24 Previous Rx's ?Medication ?Instructions ?Recorded Nebulizer supplies #1 ea 05/04/22 salmeterol 50 mcg/dose blister 1 inh inhalation Q12H PRN #3 units 01/20/24 powder for inhalation (Serevent Diskus) albuterol sulfate 90 mcg/actuation 1 - 2 puff inhalation Q6H PRN ##4 01/30/24 aerosol inhaler loratadine 10 mg tablet (Claritin) 10 mg PO DAILY #10 tabs 02/03/24 ipratropium 0.5 mg-albuterol 3 mg 3 ml inhalation DAILY PRN 06/21/24 (2.5 mg base)/3 mL nebulization shortness of breath or wheezing soln #90 vials polyvinyl alcohol 1.4 % eye drops 1 drp ophthalmic (eye) 4-6XD #15 mL 12/10/24 (Artificial Tears (polyvinyl alcohol)) prednisone 20 mg tablet 60 mg (3 x 20 mg) PO DAILY 6 days 12/10/24 #18 tabs valacyclovir 1 gram tablet 1,000 mg PO TID 7 days #21 tabs 12/10/24 Allergies Allergy/AdvReac Type Severity Reaction Status Date / Time shellfish derived Allergy Unknown rash Verified 12/10/24 11:32 cats Allergy Other (See Uncoded 12/10/24 11:32 Comment) General Stated Complaint: CVA/TIA SRAVAN: 2 Exam Narrative Exam Narrative: Gen: Awake and alert, in no apparent distress HEENT: Non-icteric sclera Neck: Supple Lungs: No apparent respiratory distress, normal respiratory effort. CV: Appears well perfused, strong distal pulses Abdomen: Non-distended MSK: Moves 4 extremities without apparent limitation in ROM Skin: Visualized skin without rashes, cyanosis. Neuro: Normal Gait, the patient has left-sided facial droop, most notable in the lower face, does have some subtle lack of complete closure of the left eye. I do note that her forehead is spared, EOMs are full. 5 out of 5 strength x 4 extremities, symmetrical bilaterally, no pronator drift, no sensory deficits. Psych: Appropriate for situation. Course Vital Signs Vital signs: Vital Signs Temperature 36.2 C L 12/10/24 10:01 Pulse 73 12/10/24 10:01 Respiratory Rate 16 12/10/24 10:01 Blood Pressure 191/56 H 12/10/24 10:01 Pulse Oximetry 97 12/10/24 10:01 Temperature 36.2 C L 12/10/24 10:01 Pulse 73 12/10/24 10:01 Respiratory Rate 16 12/10/24 10:01 Blood Pressure 191/56 H 12/10/24 10:01 Blood Pressure Position Supine 12/10/24 10:01 Pulse Oximetry 97 12/10/24 10:01 Oxygen Delivery Method Room Air 12/10/24 10:01 Oxygen Flow Rate 0 12/10/24 10:01 Medical Decision Making This is an 84-year-old female patient presenting for evaluation of left-sided facial droop. My differential includes but is not limited to Goodman's palsy, CVA, intracranial hemorrhage, intracranial mass effect. Considered metabolic electrolyte derangements, kidney injury, liver disease, infection including UTI. We obtained an EKG, which shows no evidence of ischemia or arrhythmia, and will obtain laboratory studies to include CBC, CMP, magnesium, troponin, INR, and a tick panel given the potential for Lyme's disease and Goodman's palsy. I will obtain a CTA of the brain and neck to evaluate for intracranial abnormalities. This patient is not a thrombolytic candidate as it has been greater than 4 and half hours since her last known well, but would be a candidate for lobectomy in the setting of large vessel occlusion and so I will place a teleneuro consultation as well. -I independently interpreted the laboratory studies, which show no significant leukocytosis, anemia, or thrombocytopenia. The chemistry panel is without evidence of electrolyte abnormality, kidney dysfunction, or liver injury, other than a slightly elevated bilirubin to 1.5. Troponin was negative and without interval increase on 1 hour delta recheck. Urinalysis with trace blood, but no evidence for infectious findings. INR 1.0. CTA of the brain and neck without evidence of large vessel occlusion, intracranial hemorrhage, or other abnormalities to explain her symptoms. The neurologist evaluated the patient and feels that an MRI is warranted to evaluate for stroke, but if this is negative that the patient should be treated with antivirals and steroids for Goodman's palsy. This MRI was obtained and completed in the ED. I reviewed the radiology report, no evidence of acute stroke or infarct on her MRI, and so this patient will have treatment performed for Goodman's palsy. I provided her first dose of prednisone and valacyclovir in the emergency department. She has not had any recent tick bites and so I will hold on doxycycline until her tick and Lyme panel results. I provided her with eyedrops and counseled her on eyedrops while awake, and eye ointment and taping of her eye in the evening, and she will follow-up with her primary care and dry ice machine operator in the outpatient environment. At this time, the patient has had a full medical evaluation and is safe for discharge to home. They are hemodynamically stable, ambulatory, and tolerating PO. They are understanding of the follow-up plan and return precautions. They left our facility without incident. Flores Llamas MD Quality:SDOH Health Related Social Needs: No Data to Display PFSH All Active Problems (Updated 12/10/24 @ 12:40 by Flores Llamas MD) Goodman palsy (Acute) Distal radius fracture (Acute) Rash (Acute) Elevated blood pressure reading in office with white coat syndrome, without diagnosis of hypertension (Acute) Hx elevated SBP, with elevated BP today presumably affected by grief/shock. Home BPs x 1 month. Grief at loss of child (Acute) Lost her son recently, [place] @ work Asthma (Acute) Chronic obstructive lung disease (Acute 06/16/12) GOLD 2: MOD: FEV1 1.35 (2008) 60%PRED;50% FVC, SIGNIFICANT IMPROVEMENT WITH BRONCHODILATOR Stable: uses disk inhaler daily, with proair and nebulizer PRN. Good breath sounds, active lifestyle. 05/2017 Hearing deficit (Acute 01/21/14) has hearing aids, rarely worn! 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 Diabetes due to Pancreatic Ca Father , pneumonia at age 62. Asthma Sister Asthma Sister Asthma Sister No problems noted. Brother No problems noted. Brother No problems noted. Son No problems noted. Daughter Personal history of malignant neoplasm Breast Daughter No problems noted. Social History (Updated 01/30/21 @ 09:47 by Tess Schroeder RN) Smoking/Tobacco Use Status: Never Smoking risk assessment performed?: Yes Alcohol Intake: never Drug use: Never Substance use type: does not use Household members: none Housing: house Number of Children: 3 current occupation: Retired from [employer] ([employer]) Do you think of yourself as: straight/heterosexual Current gender identity: female What is your relationship status?: How often do you get together with friends or relatives?: three or more times per week Panel score (0-1 are the most socially isolated patients): 1 What type of physical activity do you participate in: walking Duration: 15-30 minutes/day Frequency: daily Seatbelt use: always Helmet use: Yes Helmet use: other Details: N/S Working smoke detector in home: Yes Fire extinguisher in home: Yes Carbon monox detector in home: Yes Do you feel safe at home: Yes Do you feel safe in your relationship?: Yes Additional Social history: lives alone
[2024-12-10] MEDS: Normal Saline - Diluent 50 ML VIAL IJ (10:21)
[2024-12-10] MEDS: Omnipaque 350 MG/ML 100 ML BTL 70 ML IJ (10:22)
[2024-12-10 10:32] LABS: Abs Immature Grans 0.01 10^3/uL (0.0-0.06); Absolute Basophil Count 0.04 10^3/uL (0.0-0.2); Absolute Eosinophil Count 0.12 10^3/uL (0.0-0.7); Absolute Lymphocyte Count 1.01 10^3/uL (1.2-3.4); Absolute Neutrophil Count 5.02 10^3/uL (1.2-6.7); Basophils % 0.6 %; Eosinophils % 1.7 %; HCT 39.1 % (36.0-46.0); HGB 12.8 g/dL (11.2-15.7); Immature Grans % 0.1 %; Lymphocytes % 14.6 %; MCH 30.8 pg (27.0-33.0); MCHC 32.7 % (32.0-36.0); MCV 94 fL (80-95); MPV 9.2 fL (8.0-11.0); Monocytes % 10.1 %; Neutrophils % 72.9 %; Platelet Count 265 10^3/uL (130-400); RBC 4.16 10^6/uL (3.93-5.22); RDW 13.1 % (11.7-14.6); RDW-SD 45.2 fL
[2024-12-10 11:09] LABS: ALT 25 U/L (14-59); AST 20 U/L (15-37); Albumin 4.3 g/dL (3.4-5.0); Alkaline Phosphatase 91 U/L (46-116); Anion Gap 9.5 mmol/L (3-11); BUN 10 mg/dL (7-18); Bilirubin, Total 1.5 mg/dL (0.2-1.0); CO2 28.5 mmol/L (21.0-32.0); CREATININE 0.7 mg/dL (0.55-1.02); Calcium 9.7 mg/dL (8.5-10.1); Chloride 103 mmol/L (98-107); Glucose 110 mg/dL (74-106); Magnesium 2.1 mg/dL (1.8-2.4); Potassium 4.5 mmol/L (3.5-5.1); Sodium 141 mmol/L (136-145); Total Protein 7.4 g/dL (6.4-8.2); Troponin I 6 ng/L (<or=51)
[2024-12-10 11:24] LABS: Bilirubin Negative (Negative); Blood Trace-intact (Negative); Clarity Clear (Clear); Glucose Negative (Negative); Ketones Negative (Negative); Leukocyte Esterase Negative (Negative); Nitrite Negative (Negative); Urobilinogen 0.2 mg/dL (Up to 0.2)
--- NOTE | 2024-12-10 11:30 | DI.MRI_ITS ---
Exam(s) MR BRAIN WO EXAM: MR BRAIN WO CLINICAL HISTORY: L. facial droop, eval stroke TECHNIQUE: Multiplanar multisequence MRI of the brain was performed. COMPARISON: No exams were available for comparison FINDINGS: CEREBRAL PARENCHYMA: There is no evidence of intracranial hemorrhage, mass effect, or shift of midline structures. There are no extra-axial fluid collections. Ventricles are not enlarged or shifted. There is no significant focal signal abnormality in the cerebellar hemispheres nor within the randall, m idbrain, and thalami. There is mild bilateral periventricular signal abnormality consistent chronic small vessel disease.. There are no foci of restricted diffusion in the brain. There is no significant focal signal abnormality evident on SWI to suggest microhemorrhages. PITUITARY GLAND: No mass nor parasellar abnormality. No obvious abnormality in the cavernous sinuses. FLOW VOIDS: The expected flow void are noted. No evidence of obvious aneurysm nor obvious vascular ma lformation. PARANASAL SINUSES: The visualized paranasal sinuses appear unremarkable. No obvious finding ORBITS: Prior bilateral cataract surgery. IMPRESSION: No significant acute intracranial findings on this noninfused MRI scan of the brain. Report called by myself to ER physician 12/10/2024 at 12:25 p.m. DATA REPOSITORY:
[2024-12-10 11:32] LABS: Bacteria Negative HPF (Negative); C & S Indicated? No; Casts Negative LPF (Negative); Crystals Negative HPF (Negative); Epithelial Cells Rare HPF (Negative); Mucus Negative (Negative); RBC 0-2 HPF (0-2); WBC Negative HPF (0-5)
[2024-12-10 11:46] LABS: Troponin I 5 ng/L (<or=51)
[2024-12-10] MEDS: predniSONE 20 MG TAB 60 MG PO (12:49)
[2024-12-10] MEDS: valACYclovir 500 MG TAB 1000 MG PO (13:00)
[2024-12-11 11:36] LABS: Lyme Ab w Rflx to Lyme Confirm Negative (Negative)
[2024-12-12 23:29] LABS: Anaplasma phagocytophilum Negative (Negative); B. miyamotoi PCR Negative (Negative); Babesia divergens/MO-1 Negative (Negative); Babesia duncani Negative (Negative); Babesia microti Negative (Negative); Ehrlichia chaffeensis Negative (Negative); Ehrlichia ewingii/canis Negative (Negative); Ehrlichia muris eauclairensis Negative (Negative)
== END 2024-12-10 13:14 | disposition home or self-care (01) ==
PROVIDERS: Emergency Provider Emergency Medicine; PCP Family Medicine
DX: R29.810 Facial weakness (principal); G51.0 Bell's palsy; I10 Essential (primary) hypertension; J44.9 Chronic obstructive pulmonary disease, unspecified
CPT/HCPCS: 70496; 70498; 80053; 87798; 93005; 99285; 70551; 81003; 81015; 83735; 84484; 85025; 85610; 86618; 93010; 99284; J3490; J7512

== ENCOUNTER 2024-12-13 11:32 | Outpatient (CLI) | payer MEDICARE, OTHER, SELFPAY ==
--- NOTE | 2024-12-13 10:54 | NUR.NOTE ---
Delia Calhoun daughter called regarding lyme test results. Reviewed the results with Alee Peng RN and they are negative. Daughter told and she stated mother will be happy. Nursing Note:
--- NOTE | 2024-12-13 11:00 | DI.RAD_ITS ---
Exam(s) XR WRIST RT LIMITED EXAM: XR WRIST RT LIMITED CLINICAL HISTORY: F/U FRACTURE. TECHNIQUE: 2D digital imaging was performed. COMPARISON: CR XR WRIST RT COMPLETE from 12/03/2024 FINDINGS: Two views There is further healing of the nondisplaced transverse fracture in the distal radius. Fracture line is now barely visible. No evidence of ulnar fracture nor scaphoid fracture. Scapholunate distance remains normal. No prominent ulnar variance. IMPRESSION: Further healing at the nondisplaced transverse fracture site in the distal radius. DATA REPOSITORY: RADIATION DOSE DELIVERED:
== END 2024-12-13 11:33 | disposition home or self-care (01) ==
LOC: DIORS 11:32
PROVIDERS: PCP Family Medicine; Referring Provider Family Medicine; Visit Provider Physician Assistant
DX: S52.501A Unspecified fracture of the lower end of right radius, initial encounter for closed fracture (principal); W19.XXXA Unspecified fall, initial encounter
CPT/HCPCS: 99213; 29125; 73100

== ENCOUNTER 2025-01-10 10:31 | Outpatient (CLI) | payer MEDICARE, OTHER, SELFPAY ==
--- NOTE | 2025-01-10 10:15 | DI.RAD_ITS ---
Exam(s) XR WRIST RT LIMITED EXAM: XR WRIST RT LIMITED CLINICAL HISTORY: F/U FRACTURE. TECHNIQUE: 2D digital imaging was performed. Three views. COMPARISON: CR XR WRIST RT LIMITED from 12/13/2024 FINDINGS: BONES: There is increased sclerosis around the distal radial fracture consistent with some interval healing. Fracture line remains present. Alignment is unchanged. No new abnormalities are seen. No bony destructive lesion is seen. JOINTS: The carpal bones are normally aligned. Degenerative changes are again noted. SOFT TISSUE: Normal. IMPRESSION: Further healing of distal radial fracture. DATA REPOSITORY: RADIATION DOSE DELIVERED:
== END 2025-01-10 10:32 | disposition home or self-care (01) ==
LOC: DIORS 10:31
PROVIDERS: PCP Family Medicine; Referring Provider Family Medicine; Visit Provider Physician Assistant
DX: S52.551D Other extraarticular fracture of lower end of right radius, subsequent encounter for closed fracture with routine healing (principal); X58.XXXD Exposure to other specified factors, subsequent encounter
CPT/HCPCS: 99212; 73100

== ENCOUNTER 2025-02-15 10:41 | Outpatient (CLI) | payer MEDICARE, OTHER, SELFPAY ==
--- NOTE | 2025-02-15 09:53 | DI.RAD_ITS ---
Exam(s) XR WRIST RT LIMITED EXAM: XR WRIST RT LIMITED INDICATION: F/U R DISTAL RAD FX. COMPARISON: CR XR WRIST RT LIMITED from 01/10/2025 TECHNIQUE: 2D digital imaging was performed. Two views. FINDINGS: There has been continued healing at the distal radial fracture site. The bones appear osteoporotic. No new abnormalities are seen. DATA REPOSITORY: RADIATION DOSE DELIVERED:
== END 2025-02-15 10:42 | disposition home or self-care (01) ==
LOC: DIORS 10:41
PROVIDERS: PCP Family Medicine; Referring Provider Family Medicine; Visit Provider Physician Assistant
DX: S52.551D Other extraarticular fracture of lower end of right radius, subsequent encounter for closed fracture with routine healing (principal); X58.XXXD Exposure to other specified factors, subsequent encounter
CPT/HCPCS: 99213; 73100